=== PATIENT | female | born 1995 | race African-American/Black ===

== ENCOUNTER 2017-02-27 17:50 | Emergency (ER) | payer MEDICAID ==
[~2017-02-27] VITALS: Ht 175.3 cm; Wt 74.4 kg
[2017-02-27 18:13] VITALS: BP 118/79
[2017-02-27] MEDS ORDERED: ROBAXIN-750750 MG PO (18:26)
[2017-02-27] MEDS ORDERED: IBUPROFEN600 MG ORAL (18:26)
[2017-02-27] MEDS ORDERED: Methocarbamol 750mg tab ORAL ONE (18:30)
--- NOTE | 2017-02-27 21:49 | Emergency Room Report ---
History of Present Illness General Chief Complaint: Lower Back Pain or Injury Source: Patient Present Illness HPI The patient is a 21-year-old female presenting with right arm pain and back pain. The patient states that she awoke from sleep last night and twisted and felt immediate pain in the left mid back. She also noticed numbness and pain of the right arm. Pain of the back is described as a 7/10 dull ache it is worse with movement. She denies radiating pain. No the right arm described as a 9/10 dull/heavy ache. Does not radiate. She has also noticed weakness of the arm. Numbness has resolved. She denies previous injury to these areas. She denies any other symptoms including N, V, F, chills, DUVAL, dizziness, rash, abd pain Allergies: Coded Allergies: [place] (Verified Allergy, Unknown, 02/27/17) Patient History Past Medical History: see triage record Pertinent Family History: none Last Menstrual Period: 02/16/17 Now: No Reviewed Nursing Documentation: PMH: Agreed, PSxH: Agreed Nursing Documentation-PMH Past Medical History: No Stated History Review of Systems All Other Systems: negative except mentioned in HPI Physical Exam Vital Signs Date Time Temp Pulse Resp B/P Pulse Ox O2 Delivery O2 Flow Rate FiO2 02/27/17 17:57 97.5 85 18 118/79 98 Room Air Sp02 EP Interpretation: reviewed, normal General Appearance: no apparent distress, alert, GCS 15, non-toxic Head: normocephalic, atraumatic Eyes: bilateral eye PERRL, bilateral eye normal inspection ENT: hearing grossly normal, normal pharynx, no angioedema, normal voice Neck: full range of motion, supple/symm/no masses Respiratory: chest non-tender, lungs clear, normal breath sounds, speaking full sentences Gastrointestinal: normal bowel sounds, non tender, soft, non-distended, no guarding, no rebound Musculoskeletal: back normal, gait/station normal, normal range of motion, tender - TTP over the L thoracic paraspinous muscles and R anterior deltoid Neurologic: alert, oriented x3, responsive, motor strength/tone normal, sensory intact, normal gait, speech normal Psychiatric: judgement/insight normal, memory normal, mood/affect normal, no suicidal/homicidal ideation Skin: normal color, no rash, warm/dry, well hydrated Lymphatic: no adenopathy Medical Decision Making PA Attestation Dr. Chapa is my supervising physician. Patient management was discussed with my supervising physician Diagnostic Impression: Primary Impression: Arm paresthesia, right Additional Impression: Muscle strain ER Course The patient is a 21-year-old female presenting with right arm pain and back pain. Ddx considered include but not limited to sprain/strain, fracture, contusion Physical exam: No apparent distress Right shoulder: Full active of range of motion. Sensation is intact to light touch. No obvious deformity. No skin changes. There is tenderness to palpation over the anterior deltoid only. There is tenderness to palpation over the left thoracic paraspinous muscles. No midline tenderness. The patient will be discharged home with a prescription for Motrin and Robaxin and will followup with PMD. ER precautions given Last Vital Signs Date Time Temp Pulse Resp B/P Pulse Ox O2 Delivery O2 Flow Rate FiO2 02/27/17 18:30 97.5 18 118/79 98 Room Air 02/27/17 17:57 85 Status: improved Disposition: HOME, SELF-CARE Condition: Improved Scripts Methocarbamol* (ROBAXIN-750*) 750 Mg Tablet 750 MG PO TID, #21 TAB 0 Refills Prov: KIP HANKINS P.A. 02/27/17 Ibuprofen* (MOTRIN*) 600 Mg Tablet 600 MG ORAL Q8H Y for For Pain, #30 TAB 0 Refills Prov: KIP HANKINS P.A. 02/27/17 Referrals: [facility] (PCP) Patient Instructions: Back Pain, Adult Additional Instructions: I discussed my findings with the patient. All questions and concerns have been answered. Treatment and medication compliance have been addressed. I advised the patient that they need to follow up with PMD in 3-5 days. Return to ED if pain remains or worsens, numbness or tingling occurs, new rash is noticed, fever is noticed, or if needed for any reason. Patient verbalized understanding of discharge instructions. KIP HANKINS Feb 27, 2017 21:49
== END 2017-02-27 18:30 | disposition home or self-care (01) ==
LOC: EMR 18:20
DX: R20.9 Unspecified disturbances of skin sensation (principal); S39.012A Strain of muscle, fascia and tendon of lower back, initial encounter; X50.1XXA Overexertion from prolonged static or awkward postures, initial encounter; Y93.9 Activity, unspecified; Y92.9 Unspecified place or not applicable; Z91.018 Allergy to other foods
CPT/HCPCS: 99284